=== PATIENT | female | born 1950 ===

== ENCOUNTER 2021-04-30 07:05 | Day surgery (SDC) | payer OTHER | END 2021-04-30 10:40 | disposition home or self-care (01) | LOC: AMB-ENDOS 07:05 → EDBD 13:30 | PROVIDERS: ATTEND Colon & Rectal Surgery | DX: D12.3 Benign neoplasm of transverse colon (principal); K64.8 Other hemorrhoids; Z12.11 Encounter for screening for malignant neoplasm of colon ==